=== PATIENT | female | born 1945 | race Caucasian/White ===

== ENCOUNTER 2021-02-20 18:16 | Inpatient (IN) | payer MEDICARE, SELFPAY ==
[2021-02-20] VITALS (7 sets, daily range): BP systolic 103–171; BP diastolic 44–73; PULSE 82–100; RESP 12–19; TEMP 36.4–37.1; O2SAT 92–98; BMI 25.7
--- NOTE | 2021-02-20 18:55 | CTR_ITS ---
PROCEDURE INFORMATION: Exam: CT Abdomen And Pelvis With Contrast Exam date and time: 02/20/2021 7:18 PM Age: 75 years old Clinical indication: Abdominal pain; Localized; Right lower quadrant (rlq); Additional info: Rlq pain TECHNIQUE: Imaging protocol: Computed tomography of the abdomen and pelvis with contrast. Radiation optimization: All CT scans at this facility use at least one of these dose optimization techniques: automated exposure control; mA and/or kV adjustment per patient size (includes targeted exams where dose is matched to clinical indication); or iterative reconstruction. Contrast material: OMNI 300; Contrast volume: 95 ml; Contrast route: INTRAVENOUS (IV); COMPARISON: No relevant prior studies available. RADIATION DOSE METRICS: Total DLP (mGy-cm): 1160.67 FINDINGS: Lungs: Bilateral dependent atelectasis noted. Liver: Normal. No mass. Gallbladder and bile ducts: Normal. No calcified stones. No ductal dilation. Pancreas: Normal. No ductal dilation. Spleen: Normal. No splenomegaly. Adrenal glands: Normal. No mass. Kidneys and ureters: Normal. No hydronephrosis. Stomach and bowel: There is inflammatory changes of distal ileal loops surrounding the appendix, demonstrating wall thickening, increased enhancement and stranding of the surrounding fat, resulting mild dilatation of small-bowel loops with scattered air-fluid levels proximally. There is diverticulosis without evidence of diverticulitis. Appendix: There is a dilated appendix containing a 1.3 cm appendicolith, and demonstrating wall thickening and periappendiceal inflammatory changes, consistent with acute appendicitis. Intraperitoneal space: Trace free fluid noted in the right lower quadrant and pelvis. No free air. No discrete fluid collection identified. Vasculature: Unremarkable. No abdominal aortic aneurysm. Lymph nodes: Unremarkable. No enlarged lymph nodes. Urinary bladder: Unremarkable as visualized. Reproductive: Unremarkable as visualized. Bones/joints: Degenerative changes of the spine seen. Mild central loss of height of L2 and L5 noted. Soft tissues: Unremarkable. CT/CT abdomen pelvis w con* [id number] IMPRESSION: Non perforated acute appendicitis, with secondary inflammatory changes of the adjacent ileum, resulting in dilatation of small bowel proximally. THIS REPORT CONTAINS FINDINGS THAT MAY BE CRITICAL TO PATIENT CARE. The findings were verbally communicated via telephone conference with ZEV PEREYRA at 8:38 PM CDT on 02/20/2021. The findings were acknowledged and understood. Radiation Dose CTDIVOL = (mGy): DLP = 1160.67 (mGy-cm)
[2021-02-20 19:14] LABS: Basophils # 0.1 10^3/uL (0.0-0.1); Basophils % 0.5 %; Hematocrit 39.1 % (37.0-47.0); Hemoglobin 12.9 g/dL (11.5-15.3); Lymphocytes # 0.6 10^3/uL (0.8-4.8); Lymphocytes % 3.9 %; Mean Corpuscular Hemoglobin 29.5 pg (28.0-34.0); Mean Corpuscular Volume 89.3 fL (81-99); Mean Platelet Volume 9.3 fL (7.4-10.4); Monocytes # 1.3 10^3/uL (0.2-0.9); Monocytes % 8.9 %; Neutrophils # 12.63 10^3/uL (1.8-7.7); Neutrophils % 86.2 %; Nucleated Red Blood Cells % 0 %; Platelet Count 210 10^3/cmm (130-400); Red Blood Count 4.38 10^6/uL (4.1-5.3); Red Cell Distribution Width 12.5 % (12.1-15.1); White Blood Count 14.6 10^3/uL (4.0-10.0)
[2021-02-20 19:37] LABS: Alanine Aminotransferase 10 U/L (0-33); Albumin Level 3.7 g/dL (3.5-5.2); Alkaline Phosphatase 71 IU/L (35-105); Anion Gap 12.9 (5-19); Aspartate Amino Transferase 21 U/L (0-32); Blood Urea Nitrogen 15 mg/dL (8-23); C Reactive Protein 262.7 mg/L (0.0-4.9); Calcium 8.4 mg/dL (8.5-10.5); Carbon Dioxide 27 mmol/L (22-29); Chloride 91 mmol/L (98-107); Creatinine Clr Calc Pharmacy 57.5862; Glucose 129 mg/dL (65-115); Lipase 10 U/L (13-60); Osmolality Calculated 267 mOsm/kg (285-295); Potassium 3.9 mmol/L (3.5-5.1); Sodium 127 mmol/L (136-145); Total Bilirubin 0.7 mg/dL (0.15-1.2); Total Protein 6.7 g/dL (6.6-8.7)
[2021-02-20] MEDS: iohexol 300 mg/mL 100 mL Btl IV (19:47)
[2021-02-20] MEDS: piperacillin-tazobactam 3.375 GM in sodium chloride 0.9% (plus) 50 ML IV (20:49)
[2021-02-20 20:58] LABS: Add Urine Microscopic? YES; Bacteria Urine 1+ /hpf; Bilirubin Urine Neg (Negative); Blood Urine 2+ (Negative); Glucose Urine UA Norm (Normal); Ketones Urine 2+ (Negative); Leukocyte Esterase Urine 1+ (Negative); Nitrate Urine Negative (Negative); Protein Urine Trace (Negative); RBC Urine 0-4 /hpf (0-2); Specific Gravity, Urine 1.005 (1.005-1.030); Urine Appearance Clear (CLEAR); Urine Color Yellow (Yellow); Urobilinogen Urine Norm (Negative); pH Urine 6.5 (5-7)
--- NOTE | 2021-02-20 21:03 | ED_ITS ---
HPI - Abdominal Pain General: Chief Complaint: Abdominal Pain Stated Complaint: ABD PAIN FOR 36 HRS Time Seen by Provider: 02/20/21 18:47 Source: patient Mode of arrival: ambulatory Limitations: no limitations History of Present Illness: HPI narrative: This patient is a 75-year-old female who presents to the emergency department with abdominal pain that started yesterday. She said the pain started shortly after she had breakfast yesterday morning and she describes the pain as sharp. The pain has been ongoing since then and has worsened tonight. She also has a profound loss of appetite and her last meal was yesterday morning. She is here to be evaluated for this. She denies a fever. Denies nausea or vomiting. MD elicited complaint: abdominal pain Onset (ago): day(s) (1) Pain Consistency: constant Location: RLQ Severity: severe Quality: stabbing Radiation: none Migration to: no migration Exacerbating factors: nothing Relieving factors: nothing Associated Symptoms: Reports anorexia; Denies belching, bloating, change in bowel habits, change in stool character, chills, coffee ground emesis, constipation, GI cramping, diarrhea, dyspepsia, dysuria, excessive flatus, fever(s), heartburn, hematochezia, hematuria, hematemesis, fecal incontinence, loose stools, melena, nausea, poor appetite, syncope and vomiting Review of Systems General: Reports: 10 or more systems reviewed and unremarkable except in HPI and below Const: Denies: fever(s) or chills Card: Denies: syncope GI: Denies: nausea, vomiting, hematemesis, coffee ground emesis, heartburn, diarrhea, constipation, bloating, GI cramping, belching, excessive flatus, fecal incontinence, change in bowel habits, change in stool character, hematochezia or melena : Denies: dysuria or hematuria PFSH ED PFSH: Medical History (Updated 02/20/21 @ 21:40 by Scout Huffman MD) Diverticulosis Surgical History (Updated 02/20/21 @ 21:13 by Scout Huffman MD) History of tonsillectomy Social History (Updated 02/20/21 @ 21:13 by Scout Huffman MD) Smoking and tobacco status: former smoker Quit status (tobacco): has quit using tobacco Year quit tobacco: 1986 Former quit date comment: [id number] history prior Alcohol intake: former 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 Physical Exam Const: COMMON NORMALS: no acute distress, average body habitus, patient oriented x3, no limitations, healthy appearing, alert and well nourished HENMT: COMMON NORMALS: normocephalic, atraumatic and moist oral mucous membranes HEAD & SCALP: normocephalic and atraumatic Neck/C-Spine: COMMON NORMALS: no meningeal signs and no JVD Resp: COMMON NORMALS: normal respiratory effort, No retractions, No use of accessory muscles, clear to auscultation bilaterally and percussion normal AUSCULTATION: clear to auscultation bilaterally PERCUSSION: percussion normal Cardio: COMMON NORMALS: no JVD, regular rate, regular rhythm, S1 normal heart sound present, S2 normal heart sound present, No gallops present (Cardio), No clicks present (Cardio), No murmurs present (Cardio), No rub (Cardio) and Peripheral pulses 2+ throughout RATE: regular rate RHYTHM: regular rhythm HEART SOUNDS: S1 normal heart sound present and S2 normal heart sound present PERIPHERAL PULSES: Peripheral pulses 2+ throughout GI: COMMON NORMALS: Normal to inspection, nondistended, normoactive bowel sounds present, Soft to palpation, No hepatosplenomegaly present, no masses and no bruits PALPATION: Yes Soft to palpation, Yes Tenderness to palpation present (GI) Details: RLQ, Yes Guarding due to palpation present (GI), No Rigid due to palpation, Yes No hepatosplenomegaly present and Yes Rebound tenderness present Extremity: COMMON NORMALS: normal to inspection, full ROM, capillary refill normal, no calf tenderness and no pedal edema Neuro: COMMON NORMALS: patient oriented x3 SENSORIUM/ORIENTATION: Yes alert MENINGEAL SIGNS: Yes no meningeal signs Course Consultations: Consultation #1: Discussed the patient with Dr. Huffman, general surgeon. He will evaluate this patient and possibly take her to the OR. Time: 20:45 Vital Signs: Vital signs: Vital Signs Temperature 97.6 F 02/20/21 18:43 Pulse Rate 86 02/20/21 19:06 Respiratory Rate 15 02/20/21 19:06 Blood Pressure 103/61 02/20/21 19:06 Pulse Oximetry 94 02/20/21 19:06 MDM - Abdominal Pain MDM Narrative: Medical decision making narrative: 75-year-old female with acute appendicitis. She was evaluated by the surgeon and will be going to the operating room for appendectomy. Medical Records: Attestation: I reviewed the patient's medical records. Lab Data: Attestation: I reviewed the patient's lab results. Labs: Lab Results 02/20/21 02/20/21 02/20/21 Range/Units 19:00 19:00 20:28 WBC 14.6 H (4.0-10.0) 10^3/ uL RBC 4.38 (4.1-5.3) 10^6/u L Hgb 12.9 (11.5-15.3) g/dL Hct 39.1 (37.0-47.0) % MCV 89.3 (81-99) fL MCH 29.5 (28.0-34.0) pg MCHC 33.0 (30.0-36.0) g/dL RDW 12.5 (12.1-15.1) % Plt Count 210 (130-400) 10^3/c mm MPV 9.3 (7.4-10.4) fL Neut % (Auto) 86.2 % Lymph % (Auto) 3.9 % [place] % (Auto) 8.9 % Eos % (Auto) 0.0 % Baso % (Auto) 0.5 % Neut # (Auto) 12.63 H (1.8-7.7) 10^3/u L Lymph # (Auto) 0.6 L (0.8-4.8) 10^3/u L [place] # (Auto) 1.3 H (0.2-0.9) 10^3/u L Eos # (Auto) 0.0 (0.0-0.8) 10^3/u L Baso # (Auto) 0.1 (0.0-0.1) 10^3/u L Nucleated RBC % (a uto) 0 % Nucleated RBCs # 0.0 /100WBC Sodium 127 L (136-145) mmol/L Potassium 3.9 (3.5-5.1) mmol/L Chloride 91 L (98-107) mmol/L Carbon Dioxide 27 (22-29) mmol/L Anion Gap 12.9 (5-19) BUN 15 (8-23) mg/dL Creatinine 0.5 (0.5-0.9) mg/dL GFR Calculation Not Reportable Glucose 129 H (65-115) mg/dL Calculated Osmolal ity 267 L (285-295) mOsm/k g Calcium 8.4 L (8.5-10.5) mg/dL Total Bilirubin 0.7 (0.15-1.2) mg/dL AST 21 (0-32) U/L ALT 10 (0-33) U/L Alkaline Phosphata se 71 (35-105) IU/L C-Reactive Protein 262.7 H (0.0-4.9) mg/L Total Protein 6.7 (6.6-8.7) g/dL Albumin 3.7 (3.5-5.2) g/dL Globulin 3.0 (1.3-4.6) g/dL Lipase 10 L (13-60) U/L Urine Color Yellow (Yellow) Urine Appearance Clear (CLEAR) Urine pH 6.5 (5-7) Ur Specific Gravit y 1.005 (1.005-1.030) Urine Protein Trace (Negative) Urine Glucose (UA) Norm (Normal) Urine Ketones 2+ H (Negative) Urine Blood 2+ H (Negative) Urine Nitrate Negative (Negative) Urine Bilirubin Neg (Negative) Urine Urobilinogen Norm (Negative) mg/dL Ur Leukocyte Amanda ase 1+ H (Negative) Urine RBC 0-4 H (0-2) /hpf Urine WBC 10-15 H (0-5) /hpf Ur Squamous Epith Cells 10-15 H (0-5) /hpf Amorphous Sediment Not Reportable Urine Bacteria 1+ H (NONE) /hpf Imaging Data ^: CT Abd/Pel: Attestation: I personally reviewed and interpreted this imaging study as follows: Radiologist's impression: [address] [id number] Scan ReportSigned Patient: Sumeet Elliott #: [id number]: 5Acct#:[id number]/Sex: 75 / FADM Date: 02/20/21Loc: ERRoom/Bed:Attending Dr: Ordering Provider/Ordering MD: Satish Pereyra [place] [facility] [place] of Service: 02/20/21 Procedure(s): CT abdomen pelvis w con* [id number] Accession Number(s): [id number] Report Number: [id number] PROCEDURE INFORMATION: Exam: CT Abdomen And Pelvis With Contrast Exam date and time: 02/20/2021 7:18 PM Age: 75 years old Clinical indication: Abdominal pain; Localized; Right lower quadrant (rlq); Additional info: Rlq pain TECHNIQUE: Imaging protocol: Computed tomography of the abdomen and pelvis with contrast. Radiation optimization: All CT scans at this facility use at least one of these dose optimization techniques: automated exposure control; mA and/or kV adjustment per patient size (includes targeted exams where dose is matched to clinical indication); or iterative reconstruction. Contrast material: OMNI 300; Contrast volume: 95 ml; Contrast route: INTRAVENOUS (IV); COMPARISON: No relevant prior studies available. RADIATION DOSE METRICS: Total DLP (mGy-cm): 1160.67 FINDINGS: Lungs: Bilateral dependent atelectasis noted. Liver: Normal. No mass. Gallbladder and bile ducts: Normal. No calcified stones. No ductal dilation. Pancreas: Normal. No ductal dilation. Spleen: Normal. No splenomegaly. Adrenal glands: Normal. No mass. Kidneys and ureters: Normal. No hydronephrosis. Stomach and bowel: There is inflammatory changes of distal ileal loops surrounding the appendix, demonstrating wall thickening, increased enhancement and stranding of the surrounding fat, resulting mild dilatation of small-bowel loops with scattered air-fluid levels proximally. There is diverticulosis without evidence of diverticulitis. Appendix: There is a dilated appendix containing a 1.3 cm appendicolith, and demonstrating wall thickening and periappendiceal inflammatory changes, consistent with acute appendicitis. Intraperitoneal space: Trace free fluid noted in the right lower quadrant and pelvis. No free air. No discrete fluid collection identified. Vasculature: Unremarkable. No abdominal aortic aneurysm. Lymph nodes: Unremarkable. No enlarged lymph nodes. Urinary bladder: Unremarkable as visualized. Reproductive: Unremarkable as visualized. Bones/joints: Degenerative changes of the spine seen. Mild central loss of height of L2 and L5 noted. Soft tissues: Unremarkable. CT/CT abdomen pelvis w con* [id number] IMPRESSION: Non perforated acute appendicitis, with secondary inflammatory changes of the adjacent ileum, resulting in dilatation of small bowel proximally. THIS REPORT CONTAINS FINDINGS THAT MAY BE CRITICAL TO PATIENT CARE. The findings were verbally communicated via telephone conference with SATISH PEREYRA at 8:38 PM CDT on 02/20/2021. The findings were acknowledged and understood. Radiation Dose CTDIVOL = (mGy): DLP = 1160.67 (mGy-cm) Dictated By:Jami Bendered By:Victorino Bender Date/Time:02/20/21D/ 40 Discharge Plan Discharge Patient Disposition: Placed in Observation Clinical Impression: Acute appendicitis Qualifiers: Acute appendicitis type: with localized peritonitis Appendicitis gangrene presence: without gangrene Appendicitis perforation presence: without perforation Appendicitis abscess presence: without abscess Qualified Code(s): K35.30 - Acute appendicitis with localized peritonitis, without perforation or gangrene Discharge Diet: As Directed Discharge Activity: Limit activity as instructed Coding Level of Care Code ED Youth Program Director for Chg Fwd Exam Detailed
--- NOTE | 2021-02-20 21:12 | PM.HP ---
Providers/Chief Complaint Admitting Physician: General Surgery Scout Huffman MD Chief Complaint: ABD PAIN FOR 36 HRS History of Present Illness Charlette Elliott is a 75 year old female who says she awoke yesterday morning and had breakfast. Shortly thereafter she developed some right lower quadrant abdominal pain. This persisted throughout the day although she says she ended up spending most of the day in bed. She awoke at 3 AM this morning and the pain continued. She was anorexic today. She denies any fevers, chills, nausea or vomiting. She says her bowel habits may be slightly softer than normal but otherwise there have not been any significant changes. She denies hematochezia, melena, etc. She came to the emergency room tonight and a CAT scan showed evidence of acute appendicitis. The patient admits that she does not see doctors regularly. She is not aware of any ongoing medical problems. She takes no medications at home other than some vitamins. Review of Systems General: Reports: 10 or more systems reviewed and unremarkable except in HPI and below Const: Denies: fever(s) GI: Reports: abdominal pain and change in bowel habits ( Stools a little bit softer than normal ); Denies: nausea, hematochezia or melena : Denies: difficulty voiding Medications/Allergies Allergies Allergy/AdvReac Type Severity Reaction Status Date / Time No Known Allergies Allergy Verified 02/20/21 18:49 PFSH Acute PFSH: Medical History (Updated 02/20/21 @ 21:15 by Satish Jensen MD, [facility] [place]) No significant past medical history Surgical History (Updated 02/20/21 @ 21:13 by Scout Huffman MD) History of tonsillectomy Social History (Updated 02/20/21 @ 21:13 by Scout Huffman MD) Smoking and tobacco status: former smoker Quit status (tobacco): has quit using tobacco Year quit tobacco: 1986 Former quit date comment: [id number] history prior Alcohol intake: former 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 She does not appear to be in any distress. The pupils are equal. No carotid bruits are heard. The lungs are clear anteriorly. The heart is regular. The abdomen reveals very few bowel sounds and is fairly soft but the patient has fairly exquisite tenderness over McBurney's point in the right lower quadrant. Rovsing's sign is negative. No obvious masses are palpated. The extremities reveal no edema. Neurologically the patient appears to be grossly intact. Data : 02/20/21 19:00 02/20/21 19:00 CT Abd/Pel: Radiologist's impression: CT abdomen/pelvis 02/20/2021 IMPRESSION: Non perforated acute appendicitis, with secondary inflammatory changes of the adjacent ileum, resulting in dilatation of small bowel proximally. A&P Assessment and plan (1) Acute appendicitis: Acute appendicitis CT reviewed. I agree with the assessment. The patient does have some fluid around the appendix and quite a bit of surrounding inflammatory change. She does started having symptoms yesterday. I discussed appendicitis with the patient in some detail. Both conservative and surgical methods of management were gone over. Risks of both approaches and benefits of both approaches were discussed. The patient seems to understand and is agreeable to having an appendectomy performed. The patient apparently drank some water on the way into the hospital but has otherwise been n.p.o. since yesterday morning. I will make arrangements for an urgent appendectomy tonight. Status: Acute Qualifiers: Acute appendicitis type: with localized peritonitis Appendicitis abscess presence: without abscess Appendicitis gangrene presence: without gangrene Appendicitis perforation presence: without perforation Qualified Code(s): K35.30 - Acute appendicitis with localized peritonitis, without perforation or gangrene Attestations Medical Necessity Statement*: Based on my medical assessment, presenting symptoms and consideration of the scope of surgical therapy, I expect this patient will require treatment in the hospital for a period of time spanning less than 2 midnights, and is therefore being placed in observation status. Coding Level of Care Code Acute Supervisor Extruding Department for [facility] Diagnoses Acute appendicitis K35.30 Acute appendicitis type: with localized peritonitis Appendicitis abscess presence: without abscess Appendicitis gangrene presence: without gangrene Appendicitis perforation presence: without perforation
--- NOTE | 2021-02-20 21:37 | ANES.PREANE2 ---
Pre-Anesthetic Assessment Pre-Anesthetic Assessment: Height/Weight: Height 1.63 m Weight 68.039 kg Temp Pulse Resp BP Pulse Ox 97.6 F 86 15 103/61 94 02/20/21 18:43 02/20/21 19:06 02/20/21 19:06 02/20/21 19:06 02/20/21 19:06 Preop Diagnosis: appendicitis Proposed Procedure: Laparoscopic Appendectomy Familial anesthetic complications: None Was Beta Geoffrey taken within 24 hours: N/A Was Clonidine taken within 24 hours: N/A Last intake: NPO > 8 hrs, sip of water at 1700 Social: Social History: No alcohol and No tobacco Exam: Pre-Anes Outpt Exam: alert, oriented x 3, clear to auscultation bilaterally and regular rate & rhythm Airway: Cervical ROM: WNL MP: 3 Dentition: Other (multiple missing, discolored teeth) Anesthetic Plan: ASA status: 1E Other: Patient denies any history of medical problems, but states she doesn't visit the doctor either. She was able to walk 2 miles and run upstairs as late as 5 years ago. She states she now lives a sedentary life, and her muscles don't get her as far. 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 Data Anesthesia CBC & Chem 7: 02/20/21 19:00 02/20/21 19:00 Other Labs: Laboratory Results - last 48 hr 02/20/21 02/20/21 02/20/21 19:00 19:00 20:28 WBC 14.6 H RBC 4.38 Hgb 12.9 Hct 39.1 MCV 89.3 MCH 29.5 MCHC 33.0 RDW 12.5 Plt Count 210 MPV 9.3 Neut % (Auto) 86.2 Lymph % (Auto) 3.9 Emanuel % (Auto) 8.9 Eos % (Auto) 0.0 Baso % (Auto) 0.5 Neut # (Auto) 12.63 H Lymph # (Auto) 0.6 L Emanuel # (Auto) 1.3 H Eos # (Auto) 0.0 Baso # (Auto) 0.1 Nucleated RBC % (auto) 0 Nucleated RBCs # 0.0 Sodium 127 L Potassium 3.9 Chloride 91 L Carbon Dioxide 27 Anion Gap 12.9 BUN 15 Creatinine 0.5 GFR Calculation Not Reportable Glucose 129 H Calculated Osmolality 267 L Calcium 8.4 L Total Bilirubin 0.7 AST 21 ALT 10 Alkaline Phosphatase 71 C-Reactive Protein 262.7 H Total Protein 6.7 Albumin 3.7 Globulin 3.0 Lipase 10 L Urine Color Yellow Urine Appearance Clear Urine pH 6.5 Ur Specific [place] 1.005 Urine Protein Trace Urine Glucose (UA) Norm Urine Ketones 2+ H Urine Blood 2+ H Urine Nitrate Negative Urine Bilirubin Neg Urine Urobilinogen Norm Ur Leukocyte Esterase 1+ H Urine RBC 0-4 H Urine WBC 10-15 H Ur Squamous Epith Cells 10-15 H Amorphous Sediment Not Reportable Urine Bacteria 1+ H Cardiac Studies: No Data to Display
--- NOTE | 2021-02-20 22:52 | P.OP_ITS ---
Operative Report Date of procedure: February 20, 2021 Pre-op Diagnosis: Acute appendicitis. Post-op Diagnosis: 1. Same, with localized perforation. 2. Meckel's diverticulum. Procedure Done: 1. Laparoscopic appendectomy. 2. Laparoscopic Meckel's diverticulectomy. Specimens removed/disposition: 1. Appendix. 2. Meckel's diverticulum. Surgeon: Scout Huffman Anesthesia: General Estimated blood loss (mL): 5 Complications: None. Condition: stable Disposition: PACU Procedure: The patient was brought to the Operating Room and was placed in a supine position on the operating room table. General endotracheal anesthesia was induced. The abdomen was prepped and draped in a sterile fashion. A small vertical incision was carried out in the inferior aspect of the umbilicus. Blunt dissection was carried out down to the fascia, which was grasped with a Kofi clamp. A stay suture of 0 Vicryl was placed on either side of the midline and the midline fascia was incised. The underlying peritoneum was opened bluntly and the Arline port was placed directly into the peritoneal cavity and was held in place with the inflatable balloon. The peritoneal cavity was insufflated with carbon dioxide. The laparoscope was used to inspect the peritoneal cavity. Some inflammatory peel to be seen in the right lower quadrant between the cecum, small bowel and pelvic sidewall. Two 5-millimeter ports were placed in the left lower quadrant under direct vision. The patient was tilted in a Trendelenburg position and slightly to the left side. A laparoscopic Blanca was used to elevate the cecum. Some small bowel loops had formed somewhat of a phlegmon around the area and upon removing these the appendix was identified. The appendix was very inflamed and upon removing the small bowel loops from its surface a very small perforation was noted near the tip. The patient did not have a significant abscess present, but a small amount of purulent material leaked from the appendiceal lumen. The appendix was freed from the pelvic sidewall and the surrounding tissue using blunt dissection and was then elevated. The patient had a very small amount of necrotic tissue up against the pelvic sidewall, possibly where the small perforation had been present. The mesoappendix was divided using cautery to maintain hemostasis at the base of the appendix. The base of the appendix appeared relatively healthy and was divided using an endoscopic stapler. The appendix was removed from the peritoneal cavity after being placed in a laparoscopic bag. The right lower quadrant and pelvis were extensively irrigated. The staple line on the cecum was identified and appeared to be in good condition. Further efforts were made to remove the small bowel loops from the cecum where some inflammatory peel had formed. At this point, a small Meckel's diverticulum was identified in the inflammatory peel. The tissue above the diverticulum appeared to be edematous and thickened. It was difficult to tell if this was all inflammation or if perhaps the patient had a small amount of ectopic tissue within the Meckel's diverticulum. For this reason, the decision was made to remove it. The diverticulum was elevated with a laparoscopic [place] and was then removed using a laparoscopic stapler. The staple line on the small bowel appeared to be in very good condition. The Arline port was removed from the umbilical site and the stay sutures of Vicryl were tied to each other at the umbilicus. An additional [id number] suture of 0 Vicryl was placed, closing the fascial defect so that it was airtight. A final round of irrigation was carried out in the right lower quadrant and the pelvis. No ongoing problems were seen. The remaining ports were removed from the abdominal wall as the pneumoperitoneum was evacuated. All skin incisions were closed using inverted interrupted sutures of 4-0 Vicryl. Benzoin and Steri-Strips were placed over the incisions and Band- Aids followed. The patient was taken to the Recovery Room in stable condition postoperatively.
--- NOTE | 2021-02-20 23:03 | P.PCN_ITS ---
PACU note PACU note: VSS, Good respiratory effort, report to [facility] DECK Post-Anesthesia Exam: awake
--- NOTE | 2021-02-20 23:03 | PM.PACU ---
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
--- NOTE | 2021-02-20 23:30 | ANE.PACU2 ---
Inpatient post-anesthesia follow up: Airway intact: Yes Vital signs: Temperature 98.5 F Pulse Rate [Apical ] 90 Pulse Rate 86 Respiratory Rate 18 Blood Pressure [Le ft Arm] 131/69 Blood Pressure 125/75 Pulse Oximetry 96 Oxygen Delivery Me thod Nasal Cannula Oxygen Flow Rate Fraction of Inspir ed Oxygen Hydration adequate: Yes Nausea and vomiting: No Pain level: 2 Mental status: Baseline
[2021-02-21] VITALS (23 sets, daily range): BP systolic 104–132; BP diastolic 61–75; PULSE 80–90; RESP 13–20; TEMP 34.2–37.7; O2SAT 93–98
[2021-02-21] MEDS: D5-NS 0.45% + KCL 20 mEq 20 MEQ/1,000 ML BAG 100 MEQ IV (00:07)
[2021-02-21] MEDS: piperacillin-tazobactam 3.375 GM in sodium chloride 0.9% (plus) 50 ML IV ×4 (00:13→23:43)
[2021-02-21] MEDS: heparin 5,000 unit/mL INJ 1 mL 5000 UNIT SUBCUT ×3 (00:24→23:43)
[2021-02-21] MEDS: famotidine 20 mg/2 mL INJ IVP ×3 (00:28→23:43)
[2021-02-21 02:18] LABS: Basophils % 0.5 %; Hematocrit 39.6 % (37.0-47.0); Hemoglobin 12.7 g/dL (11.5-15.3); Lymphocytes # 0.4 10^3/uL (0.8-4.8); Lymphocytes % 4.5 %; Mean Corpuscular HGB Conc 32.1 g/dL (30.0-36.0); Mean Corpuscular Hemoglobin 28.9 pg (28.0-34.0); Mean Corpuscular Volume 90.2 fL (81-99); Mean Platelet Volume 9.4 fL (7.4-10.4); Monocytes # 0.4 10^3/uL (0.2-0.9); Monocytes % 4.7 %; Neutrophils # 7.06 10^3/uL (1.8-7.7); Neutrophils % 89.9 %; Nucleated Red Blood Cells % 0 %; Platelet Count 200 10^3/cmm (130-400); Red Blood Count 4.39 10^6/uL (4.1-5.3); Red Cell Distribution Width 12.4 % (12.1-15.1); White Blood Count 7.9 10^3/uL (4.0-10.0)
[2021-02-21 02:35] LABS: Slide Review Slide Review Perform
[2021-02-21 02:41] LABS: Anion Gap 12.7 (5-19); Blood Urea Nitrogen 12 mg/dL (8-23); Carbon Dioxide 25 mmol/L (22-29); Chloride 97 mmol/L (98-107); Glucose 139 mg/dL (65-115); Osmolality Calculated 274 mOsm/kg (285-295); Potassium 3.7 mmol/L (3.5-5.1); Sodium 131 mmol/L (136-145)
[2021-02-21 02:53] LABS: Creatinine Clr Calc Pharmacy 57.5862
[2021-02-21] MEDS: levalbuterol 0.63 mg/3 mL Neb INHALATION ×4 (07:56→20:43)
--- NOTE | 2021-02-21 08:25 | P.PN_ITS ---
Subjective Subjective: Interval history: The patient says she already feels better this morning. Surgical findings were discussed. She is okay staying in the hospital at least 1 more day given her localized perforation. Vitals/I&O/Wt Last Vital Signs Temp 98.5 F 02/21/21 06:23 Pulse 88 02/21/21 08:03 Resp 18 02/21/21 07:58 BP 117/73 02/21/21 06:23 Pulse Ox 95 02/21/21 07:58 02/20/21 02/21/21 02/21/21 22:59 06:59 14:59 Intake Total 50 / 220 170 / 220 120 / 120 Output Total 370 / 370 Balance 50 / -150 -200 / -150 120 / 120 Weight last 48 hrs Weight 150 lb Physical Exam Narrative: EXAM NARRATIVE: Bowel sounds are infrequent. The abdomen exhibits the expected amount of tenderness. Data : 02/21/21 02:05 02/21/21 02:05 A&P Assessment and plan (1) Perforated appendicitis: The patient was found to have a localized perforation at the time of inya vipin. This seemed to be very well contained by a phlegmon. I have discussed the findings with the patient. I have recommended that we consider leaving her in the hospital at least 1 more day for intravenous antibiotics. She is in agreement. Status: Acute Attestations Medical Necessity Statement*: Given the patient's finding of appendiceal perforation at the time of surgery, I am going to change the patient to inpatient status and continue her intravenous antibiotics. Coding Level of Care Code Acute Critical Power Install Technician for [facility] Diagnoses Perforated appendicitis K35.32
[2021-02-21] MEDS: dextrose 5%-ns + KCl 20 20 MEQ/1,000 ML BAG 100 MEQ IV (13:34)
[2021-02-22] VITALS (9 sets, daily range): BP systolic 107–131; BP diastolic 63–77; PULSE 73–87; RESP 16–18; TEMP 36.7–37.2; O2SAT 93–95
[2021-02-22] MEDS: dextrose 5%-ns + KCl 20 20 MEQ/1,000 ML BAG 100 MEQ IV ×2 (04:14→15:31)
--- NOTE | 2021-02-22 07:34 | PC.NURSE ---
UPON MORNING ASSESSMENT, PT WAS LAYING IN BED AND APPEARED TO HAVE THROWN UP A LITTLE BIT. THIS NURSE ASKED THE PT IF SHE WOULD LIKE ANYTHING FOR NAUSEA AND THE PT REFUSED. SHE STATED THIS IS THE MOST RELIEF SHE HAS HAD SINCE SURGERY AND SHE DOES NOT WANT ANYTHING FOR NAUSEA OR PAIN. I EXPLAINED TO HER THE IMPORTANCE OF WALKING AND MOVING AROUND OFTEN SO THAT THE DISTENTION IN HER BELLY DOES NOT BECOME ANY WORSE. WILL CONTINUE TO MONITOR PT THROUGHOUT SHIFT.
[2021-02-22] MEDS: piperacillin-tazobactam 3.375 GM in sodium chloride 0.9% (plus) 50 ML IV ×3 (08:59→23:53)
--- NOTE | 2021-02-22 10:49 | PC.CHAP ---
Pastoral Care Encounter/Spiritual Assessment Type of Contact [] Declined complaint supervisor visit [] Patient/Family/Request visit [] Outpatient visit [] Follow-up visit [] Physician referral [] Code/Alert [] Routine visit [] Staff referral [] Actively dying [] Patient sleeping [] Family support [] [] Out of room [] Palliative care [] [] Receiving care in room [] Pre-surgical visit [] Trauma [x] Long length of stay [] ICU visit [] Other: Relational/Emotional Strength [] Patient feels connected with others/family/visitors/staff [] Distress [] Loneliness/isolation [] Abandonment Spirituality of Patient [] Person of Bea [] Attends Protestant of their Bea [] Believes in Prayer [] Reads Bible or Worship materials [] There are Spiritual issues to be addressed Science Technicians Interventions [] Prayer [] Active listening [] Non-anxious presence [] Spiritual/emotional support [] Crisis/trauma care [] Spiritual counseling [] Bereavement support [] Provided bereavement packet [] Provided Bible/devotional materials [] Provided toy/stuffed animal, coloring book to patient or family member [] Provided Communion [] Anointing/[place] [] Salvation [] Completed spiritual assessment [] Other: Impact on Illness or Injury [] Angry [] Fearful [] Anxious [] Often cries [] Exhaustion [] Unable to work [] Unable to attend christian [] Unable to walk/stand [] Unable to read [] Unable to drive [] Unable to eat/drink [] Unable to sleep [] Unable to be with family [x] Patient intubated [] Other: Summary meds, not able to communicate Time spent with patient 5 mins
--- NOTE | 2021-02-22 10:54 | XR_ITS ---
WS: [id number] Exam: XR KUB portable [id number] Date/Time of Exam: 02/22/2021 11:04 AM Reason For Exam: Postoperative abdominal pain, rule out free air Mild gaseous dilatation of the small bowel may represent postop ileus. No free air noted. Organ sylvain ns are obscured. Monitoring leads superimpose the abdomen. XR/XR KUB portable [id number] IMPRESSION: 1. Mild small bowel dilatation that may represent postop ileus. No free air octavia ntified.
--- NOTE | 2021-02-22 11:27 | PM.PN ---
Subjective Subjective: Interval history: The patient says she is not feeling well today. She feels like she has a lot of gas that she needs to expel but cannot do that. She said she actually has gotten some nausea and had an episode of vomiting, as well. Vitals/I&O/Wt Last Vital Signs Temp 98.2 F 02/22/21 07:36 Pulse 78 02/22/21 07:36 Resp 18 02/22/21 07:36 BP 131/66 02/22/21 07:36 Pulse Ox 95 02/22/21 07:36 02/21/21 02/22/21 02/22/21 22:59 06:59 14:59 Intake Total 1010 / 3590 1410 / 3590 0 / 0 Output Total 1200 / 2900 1000 / 2900 Balance -190 / 690 410 / 690 0 / 0 Weight last 48 hrs Weight 150 lb Physical Exam Narrative: EXAM NARRATIVE: The bowel sounds are fairly hypoactive. She does have some considerable tenderness over the lower abdomen in the midline. She is mildly distended. All of her incisions look okay. Data : 02/21/21 02:05 02/21/21 02:05 A&P Assessment and plan (1) Acute appendicitis: Status post laparoscopic appendectomy (localized perforation found) and laparoscopic Meckel's diverticulectomy on 02/20/2021. The patient has developed some abdominal pain and nausea/vomiting. I ordered a KUB to make sure there was not any obvious evidence of free air. The radiologist's reading is still pending, but to me, it appears that the patient has a postoperative ileus or perhaps even early small bowel obstruction. I did make her aware that a lot of her distal loops of small bowel were involved in a phlegmon but I felt like we got those enough that an obstructive process is not very likely. We discussed a nasogastric tube but she wants to hold off for now. I will recheck labs tomorrow morning. Status: Deleted Qualifiers: Acute appendicitis type: with localized peritonitis Appendicitis abscess presence: without abscess Appendicitis gangrene presence: without gangrene Appendicitis perforation presence: without perforation Qualified Code(s): K35.30 - Acute appendicitis with localized peritonitis, without perforation or gangrene Attestations Medical Necessity Statement*: The patient requires continued inpatient care including intravenous antibiotics following appendectomy for perforated appendicitis and Meckel's diverticulectomy. Coding Level of Care Code Acute Basketball Scout for [facility] Fwd Diagnoses Acute appendicitis K35.30 Acute appendicitis type: with localized peritonitis Appendicitis abscess presence: without abscess Appendicitis gangrene presence: without gangrene Appendicitis perforation presence: without perforation
[2021-02-22] MEDS: heparin 5,000 unit/mL INJ 1 mL 5000 UNIT SUBCUT ×2 (11:36→23:53)
[2021-02-22] MEDS: famotidine 20 mg/2 mL INJ IVP ×2 (11:36→23:53)
[2021-02-22] MEDS: amoxicillin-clav 875-125 mg Tablet 1 TAB PO (17:20)
[2021-02-23] VITALS (10 sets, daily range): BP systolic 109–146; BP diastolic 55–73; PULSE 72–95; RESP 16–18; TEMP 36.5–37.2; O2SAT 93–98
[2021-02-23 02:50] LABS: Basophils % 0.5 %; Eosinophils % 0.3 %; Hematocrit 34.7 % (37.0-47.0); Lymphocytes # 0.7 10^3/uL (0.8-4.8); Lymphocytes % 8.7 %; Mean Corpuscular HGB Conc 31.7 g/dL (30.0-36.0); Mean Corpuscular Hemoglobin 29.3 pg (28.0-34.0); Mean Corpuscular Volume 92.3 fL (81-99); Mean Platelet Volume 9.4 fL (7.4-10.4); Monocytes # 0.9 10^3/uL (0.2-0.9); Monocytes % 12.4 %; Neutrophils % 76.8 %; Nucleated Red Blood Cells % 0 %; Platelet Count 235 10^3/cmm (130-400); Red Blood Count 3.76 10^6/uL (4.1-5.3); Red Cell Distribution Width 12.8 % (12.1-15.1); White Blood Count 7.4 10^3/uL (4.0-10.0)
[2021-02-23 03:07] LABS: Anion Gap 7.3 (5-19); Blood Urea Nitrogen 12 mg/dL (8-23); Calcium 7.6 mg/dL (8.5-10.5); Carbon Dioxide 27 mmol/L (22-29); Chloride 105 mmol/L (98-107); Glucose 126 mg/dL (65-115); Osmolality Calculated 281 mOsm/kg (285-295); Potassium 4.3 mmol/L (3.5-5.1); Sodium 135 mmol/L (136-145)
[2021-02-23 03:10] LABS: Creatinine Clr Calc Pharmacy 57.5862
[2021-02-23] MEDS: dextrose 5%-ns + KCl 20 20 MEQ/1,000 ML BAG 100 MEQ IV ×2 (06:34→18:05)
[2021-02-23] MEDS: piperacillin-tazobactam 3.375 GM in sodium chloride 0.9% (plus) 50 ML IV ×2 (08:03→16:31)
[2021-02-23] MEDS: amoxicillin-clav 875-125 mg Tablet 1 TAB PO ×2 (08:04→18:05)
--- NOTE | 2021-02-23 08:27 | PM.PN ---
Subjective Subjective: Interval history: The patient is feeling better today. She is passing a lot of flatus and is actually having bowel movements. She says her appetite still has not returned, however. Her nausea is improved. She is not terribly interested in eating, but would like to try some clear liquids. Vitals/I&O/Wt Last Vital Signs Temp 97.7 F 02/23/21 07:29 Pulse 87 02/23/21 07:29 Resp 18 02/23/21 07:29 BP 109/62 02/23/21 07:29 Pulse Ox 96 02/23/21 07:29 02/22/21 02/23/21 02/23/21 22:59 06:59 14:59 Intake Total 1050 / 2150 1050 / 2150 Output Total 200 / 200 Balance 1050 / 1950 850 / 1950 Physical Exam Narrative: EXAM NARRATIVE: Bowel sounds remain hypoactive. All of the incisions look good. The Band-Aids were removed today. She still has some scattered tenderness, but improved from yesterday. Data : 02/23/21 02:14 02/23/21 02:14 A&P Assessment and plan (1) Acute appendicitis: Status post laparoscopic appendectomy (localized perforation found) and laparoscopic Meckel's diverticulectomy on 02/20/2021. The patient seems to be improving. Her bowel function is returning. I am going to start her on a clear liquid diet and we will take it slow. Status: Deleted Qualifiers: Acute appendicitis type: with localized peritonitis Appendicitis abscess presence: without abscess Appendicitis gangrene presence: without gangrene Appendicitis perforation presence: without perforation Qualified Code(s): K35.30 - Acute appendicitis with localized peritonitis, without perforation or gangrene Attestations Medical Necessity Statement*: Patient requires continued inpatient care for intravenous antibiotics following perforated appendicitis. Coding Level of Care Code Acute Cnc Set Up Operator for [facility] Diagnoses Acute appendicitis K35.30 Acute appendicitis type: with localized peritonitis Appendicitis abscess presence: without abscess Appendicitis gangrene presence: without gangrene Appendicitis perforation presence: without perforation
[2021-02-23] MEDS: famotidine 20 mg/2 mL INJ IVP (10:29)
[2021-02-23] MEDS: heparin 5,000 unit/mL INJ 1 mL 5000 UNIT SUBCUT (10:30)
[2021-02-23] MEDS: famotidine 20 mg Tablet PO (21:51)
[2021-02-24] VITALS (7 sets, daily range): BP systolic 115–134; BP diastolic 71–76; PULSE 66–82; RESP 16–18; TEMP 37–37.6; O2SAT 94–97
[2021-02-24] MEDS: heparin 5,000 unit/mL INJ 1 mL 5000 UNIT SUBCUT (00:13)
[2021-02-24] MEDS: piperacillin-tazobactam 3.375 GM in sodium chloride 0.9% (plus) 50 ML IV ×2 (00:13→08:57)
[2021-02-24] MEDS: dextrose 5%-ns + KCl 20 20 MEQ/1,000 ML BAG 100 MEQ IV (05:07)
[2021-02-24] MEDS: famotidine 20 mg Tablet PO (08:57)
[2021-02-24] MEDS: amoxicillin-clav 875-125 mg Tablet 1 TAB PO (08:57)
--- NOTE | 2021-02-24 09:09 | PM.DCS ---
Discharge Providers Date of Admission: 02/21/21 09:28 Date of Discharge: February 24, 2021 Attending Provider at Admission: Scout Huffman MD Attending Provider at Discharge: Scout Huffman MD Diagnoses at Discharge Discharge Diagnosis (1) Perforated appendicitis: Status: Acute Permanent problem details: Localized perforation Reason for Visit Reason for Visit: ABD PAIN FOR 36 HRS Hospital Course Hospital Course This is a 75-year-old white female who presented to the hospital with abdominal pain. A CAT scan showed evidence of acute appendicitis. She was taken to the operating room and was found to have somewhat of an end of advanced appendicitis with a localized perforation and a surrounding phlegmon. She was also found to have a small Meckel's diverticulum involved in some inflammatory peel and this was also removed laparoscopically. Postoperatively the patient did well. The first day she was already up ambulating but by the following day she had started having some problems with nausea and even had an episode of vomiting. An x-ray showed a postoperative ileus and her exam was consistent with this. This resolved spontaneously and by 02/25/2020 when she was passing flatus and stool. She was afebrile. She indicated that she was ready to go home. She was not taking any pain medication. Because of her localized perforation I made arrangements for her to go home on an oral antibiotic for 5 days. She was instructed with respect to diet, wound care, activity limitations, etc. Arrangements will be made for her to follow-up with me in the office as an outpatient. Physical Exam Narrative: EXAM NARRATIVE: Bowel sounds are present. All of the incisions look good. The patient has a mild contusion below the umbilical incision which is already in the process of resolving. She has the expected amount of tenderness. Discharge Data Data Completed and Pending: Completed Studies During Hospitalization Category Date Time Status CT abdomen pelvis w con* [id number] Stat Cat Scan 02/20/21 18:55 Completed XR KUB portable [id number] Routine Exams 02/22/21 10:54 Completed Pathology: Surgic al [PTH] Routine Pth 02/20/21 22:57 Completed Pending at discharge Category Date Time Status ES surgery / GI i mages Routine Exams 02/20/21 21:50 Taken Vitals: Last Vital Signs Temp 98.6 F 02/24/21 07:52 Pulse 76 02/24/21 07:55 Resp 18 02/24/21 07:55 BP 115/71 02/24/21 07:52 Pulse Ox 95 02/24/21 07:55 Discharge Plan Discharge Patient Disposition: Home Condition: Stable Prescriptions: New amoxicillin-pot clavulanate 875-125 mg Tablet 1 tab PO BID Qty: 10 RF: 0 Discharge Orders: Discharge Order (Routine); Ordered 02/24/21 Ordered By: Scout Huffman Referrals: Scout Huffman MD [Physician] - 7-10 days (Nursing: Please have the patient / family call Dr. Huffman's office on Friday ([phone]) and make an appointment for the patient to be seen in 7-10 days.) Discharge Diet: Advance as tolerated Discharge Activity: Limit activity as instructed Patient Instructions: Opioid Safety Activity Restrictions/Additional Instructions: 1. Discharge to home today. 2. Appointment to see Dr. Huffman in 7?10 days as above. 3. Leave Steri-Strip(s) on, may shower. No lifting over 20 pounds, no repetitive bending or twisting, no strenuous pushing / pulling or other heavy activity. Ambulate regularly. May go up and down steps if needed. Discharge Attestations Time Spent in Discharge Care*: less than 30 min Quality Metrics Clinical Quality Measures During this hospital stay, did patient experience: None Coding Level of Care Code Acute [facility] note Diagnoses Perforated appendicitis K35.32
--- NOTE | 2021-02-24 10:52 | PC.SOCIAL ---
*IMM UPDATE* Gave patient IMM update, provided her copy of page 2. Verbalized understanding 02/24/21 @ 0947 Initialed, dated, timed and placed in chart.
--- NOTE | 2021-02-24 16:50 | PC.NURSE ---
PT HAS DONE WELL FOR ME TODAY. NO COMPLAINTS OF PAIN OR NAUSEA. PT HAS BEEN UP TO WALK MULTIPLE TIMES. DR. TSE ROUNDED WITH PT EARLY THIS MORNING AND IT WAS AGREED THAT THE PT WAS READY FOR DISCHARGE. PT SAID SHE WOULD NEED TO STAY FOR A WHILE UNTIL SHE COULD GET HER RIDE HER. THE DOCTOR WAS OKAY WITH THAT. PT HAS BEEN TOLERATING HER DIET WELL. DISCHARGE PAPERWORK WAS GONE OVER WITH THE PT. ALL QUESTIONS WERE ANSWERED. IV WAS REMOVED. CATHETER TIP INTACT. PT TOLERATED WELL. PT SAFELY DISCHARGED FROM HOSPITAL.
== END 2021-02-24 16:15 | disposition home or self-care (01) | DRG 331 ==
LOC: ER 21:34 → OPS 21:35 → MEDSURG 22:54
PROVIDERS: Emergency Medicine; Admitting Provider Surgery; Emergency Provider Family Medicine; Visit Provider Surgery
PROC: 0DTJ4ZZ Resection of Appendix, Percutaneous Endoscopic Approach (ICD-10-PCS; CPT 44970; principal; 2021-02-20 22:00)
DX: K35.32 Acute appendicitis with perforation, localized peritonitis, and gangrene, without abscess (principal); Z87.891 Personal history of nicotine dependence; Q43.0 Meckel's diverticulum (displaced) (hypertrophic)
CPT/HCPCS: 12345; 36415; 74018; 74177; 80048; 80053; 81001; 83690; 85025; 86140; 88304; 94640; 96365; 96372; 99285; G0378; J1100; J1644; J2543; J2704; J2710; J3490; J7614; Q9967